=== PATIENT | male | born 1995 | race African-American/Black ===

== ENCOUNTER 2022-03-28 17:34 | Emergency (ER) | payer BC, SELFPAY ==
[2022-03-28] MEDS ORDERED: diphenhydrAMINE 50 MG/ML VIAL ONE (19:18)
[2022-03-28] MEDS ORDERED: Metoclopramide HCl 10 MG/2 ML VIAL ONE (19:18)
[2022-03-28] MEDS ORDERED: Ketorolac Tromethamine 30 MG/ML VIAL ONE (19:18)
== END 2022-03-28 19:57 | disposition home or self-care (01) ==
LOC: BURERS 17:34
DX: B34.9 Viral infection, unspecified (principal); Z20.822 Contact with and (suspected) exposure to COVID-19
CPT/HCPCS: 87804; 96374; 96375; J1200; J1885; J2765; U0003; U0005

== ENCOUNTER 2023-02-16 20:53 | Emergency (ER) | payer BC ==
[2023-02-16 21:24] LABS: Bilirubin Negative (Negative); Blood, Urine Negative (Negative); Clarity Clear (Clear); Glucose, Urine (Dipstick) Negative (Negative); Ketone, Urine Negative (Negative); Leukocyte Negative (Negative); Nitrite Negative (Negative); Protein, Urine (Dipstick) Negative (Neg-Trace); Specific Gravity, Urine 1.025 (1.005-1.030); Urobilinogen 0.2 mg/dL (Less than 2); pH, Urine 6.5 (5.0-9.0)
[2023-02-16 21:34] LABS: Amphetamine Not Detected (NotDetected); Barbiturates Screen Not Detected (NotDetected); Benzodiazepine Screen Not Detected (NotDetected); Cocaine Metabolite Screen Not Detected (NotDetected); Methadone Not Detected (NotDetected); Methamphetamine Not Detected (NotDetected); Opiate Screen Not Detected (NotDetected); Oxycodone Screen Not Detected (NotDetected); Phencyclidine (PCP) Not Detected (NotDetected); THC/Cannabinoid Screen Not Detected (NotDetected); Tricyclic Screen Not Detected (NotDetected)
[2023-02-16 21:37] LABS: Bacteria/HPF None Seen HPF (None Seen); CAUTI Indications for Culture Pelvic or flank pain; RBC/HPF 0-3 HPF (0-3); Squamous Epithelial None Seen HPF (0-3); WBC/HPF None Seen HPF (0-3)
[2023-02-16 21:38] LABS: Urine Culture Reflex No No
[2023-02-16 21:47] LABS: #Basophils 0.1 thou/uL (0.0-0.2); #Eosinphils 0.1 thou/uL (0.0-0.7); #Lymphocytes 1.4 thou/uL (1.20-3.40); #Monocytes 0.5 thou/uL (0.11-0.59); #Neutrophils 3.5 thou/uL (1.40-6.50); %Basophils 1.9 % (0.0-1.0); %Eosinophils 2.3 % (0.0-10.0); %Lymphocytes 24.6 % (21.0-51.0); %Monocytes 8.5 % (0.0-10.0); %Neutrophils 62.6 % (42.0-75.0); Hematocrit 38.9 % (42.0-52.0); Hemoglobin 13.3 g/dL (14.0-18.0); Mean Corpuscular HGB CONC 34.1 g/dL (32.0-36.0); Mean Corpuscular Hemoglobin 32.7 pg (27.0-31.0); Mean Corpuscular Volume 95.7 fl (78.0-98.0); Mean Platelet Volume 6.7 fL (7.4-10.4); Platelet Count 242 10x3/uL (130-400); RBC Distribution Width 10.8 % (11.5-14.5); Red Blood Cell (RBC) Count 4.07 mill/uL (4.70-6.10); White Blood Cell (WBC) Count 5.6 10x3/uL (4.8-10.8)
[2023-02-16 21:54] LABS: ALT (SGPT) 22 U/L (8-55); AST (SGOT) 20 U/L (5-34); Albumin 4.4 g/dL (3.5-5.0); Alkaline Phosphatase 85 U/L (40-110); Anion Gap 17 mmol/L (10-20); BUN (Urea Nitrogen) 16 mg/dL (8.9-20.6); Bilirubin, Total 0.5 mg/dL (0.2-1.2); Calc. Creatinine Clearance 0 mL/min (70-130); Calcium 9.2 mg/dL (7.8-10.44); Carbon Dioxide 20 mmol/L (22-29); Chloride 107 mmol/L (98-107); Estimated GFR 91; Globulin 3.3 g/dL (2.4-3.5); Glucose 114 mg/dL (70-105); Potassium 3.6 mmol/L (3.5-5.1); Protein, Total 7.7 g/dL (6.0-8.3); Sodium 140 mmol/L (136-145)
== END 2023-02-16 22:18 | disposition home or self-care (01) ==
LOC: BURERS 20:53
DX: R00.2 Palpitations (principal)
CPT/HCPCS: 36415; 80053; 80306; 81001; 85025; 93005

== ENCOUNTER 2023-03-09 17:33 | Emergency (ER) | payer BC ==
[2023-03-09 18:24] LABS: #Basophils 0.1 thou/uL (0.0-0.2); #Lymphocytes 1.4 thou/uL (1.20-3.40); #Monocytes 0.5 thou/uL (0.11-0.59); #Neutrophils 3.2 thou/uL (1.40-6.50); %Basophils 1.2 % (0.0-1.0); %Eosinophils 0.7 % (0.0-10.0); %Lymphocytes 26.6 % (21.0-51.0); %Monocytes 9.1 % (0.0-10.0); %Neutrophils 62.4 % (42.0-75.0); Hematocrit 41.5 % (42.0-52.0); Hemoglobin 13.4 g/dL (14.0-18.0); Mean Corpuscular HGB CONC 32.4 g/dL (32.0-36.0); Mean Corpuscular Hemoglobin 31.8 pg (27.0-31.0); Mean Platelet Volume 7.2 fL (7.4-10.4); Platelet Count 258 10x3/uL (130-400); RBC Distribution Width 10.9 % (11.5-14.5); Red Blood Cell (RBC) Count 4.24 mill/uL (4.70-6.10); White Blood Cell (WBC) Count 5.1 10x3/uL (4.8-10.8)
[2023-03-09 18:42] LABS: ALT (SGPT) 24 U/L (8-55); AST (SGOT) 23 U/L (5-34); Albumin 4.7 g/dL (3.5-5.0); Alkaline Phosphatase 82 U/L (40-110); Anion Gap 14 mmol/L (10-20); BUN (Urea Nitrogen) 11 mg/dL (8.9-20.6); Bilirubin, Total 1.1 mg/dL (0.2-1.2); Calc. Creatinine Clearance 0 mL/min (70-130); Calcium 9.8 mg/dL (7.8-10.44); Carbon Dioxide 25 mmol/L (22-29); Chloride 103 mmol/L (98-107); Estimated GFR 78; Globulin 3.3 g/dL (2.4-3.5); Glucose 88 mg/dL (70-105); Potassium 3.8 mmol/L (3.5-5.1); Sodium 138 mmol/L (136-145)
== END 2023-03-09 19:04 | disposition home or self-care (01) ==
LOC: BURERS 17:33
DX: F41.9 Anxiety disorder, unspecified (principal); R23.2 Flushing
CPT/HCPCS: 36415; 71046; 80053; 85025; 93005

== ENCOUNTER 2023-03-13 21:22 | Emergency (ER) | payer BC | END 2023-03-13 21:56 | disposition home or self-care (01) | LOC: BURERS 21:22 | DX: F41.9 Anxiety disorder, unspecified (principal) | CPT/HCPCS: 99283 ==

== ENCOUNTER 2023-03-27 20:01 | Emergency (ER) | payer BC | END 2023-03-27 21:20 | disposition home or self-care (01) | LOC: BURERS 20:01 | DX: H93.11 Tinnitus, right ear (principal); R07.9 Chest pain, unspecified | CPT/HCPCS: 93005 ==

== ENCOUNTER 2023-10-08 12:35 | Emergency (ER) | payer BC | END 2023-10-08 12:52 | disposition home or self-care (01) | LOC: BURERS 12:35 | DX: J06.9 Acute upper respiratory infection, unspecified (principal) | CPT/HCPCS: 99283 ==

== ENCOUNTER 2024-01-06 02:53 | Emergency (ER) | payer BC ==
[2024-01-06] MEDS ORDERED: Ketorolac Tromethamine 30 MG (1 mL) VIAL ONE (04:00)
== END 2024-01-06 04:15 | disposition home or self-care (01) ==
LOC: BURERS 02:53
DX: S13.4XXA Sprain of ligaments of cervical spine, initial encounter (principal); K08.89 Other specified disorders of teeth and supporting structures; R51.9 Headache, unspecified; V80.010A Animal-rider injured by fall from or being thrown from horse in noncollision accident, initial encounter
CPT/HCPCS: 96372; 99283; J1885

== ENCOUNTER 2024-05-04 21:50 | Emergency (ER) | payer BC | END 2024-05-04 22:36 | disposition home or self-care (01) | LOC: BURERS 21:50 | DX: F41.9 Anxiety disorder, unspecified (principal) | CPT/HCPCS: 99284 ==